=== PATIENT | female | born 1960 | race Caucasian/White ===

== ENCOUNTER → 2023-04-14 | Outpatient (CLI) | payer BC ==
--- NOTE | 2023-04-16 08:20 | MM ---
Reason for Exam: Screening (asymptomatic). Last mammogram was performed 5 year(s) and 11 month(s) ago. Patient History: Menarche at age 15. First Full-Term at age 25. Postmenopausal. Hormonal Contraceptives for 3 years, 8 months. Risk Values: Mónica 5 year model risk: 1.3%. NCI Lifetime model risk: 6.4%. Prior Study Comparison: 06/22/2014 Bilateral Screening Mammogram, [facility]. 07/01/2014 Left Diagnostic Mammogram, [facility]. 09/06/2015 Bilateral Diagnostic Mammogram, [facility]. Tissue Density: There are scattered fibroglandular densities. Findings: Analyzed By CAD. There is no suspicious group of microcalcifications or new suspicious mass. Overall Assessment: Negative, BI-RAD 1 Management: Screening Mammogram of both breasts in [address] [facility] will attempt to contact patient to return for supplemental views and ultrasound if indicated. Patient should continue monthly self-breast exams. A clinical breast exam by your physician is recommended on an annual basis. This exam should not preclude additional follow-up of suspicious palpable abnormalities. Note on Mónica scores and lifetime risk: 1. A Mónica score greater than 3% is considered moderate risk. If this is the case, consider specialist referral to assess eligibility for a risk reducing agent. 2. If overall lifetime risk for the development of breast cancer is 20% or higher, the patient may qualify for future screening with alternating mammogram and breast MRI. Electronically signed and approved by: Edu Arevalo DO
== END | disposition home or self-care (01) ==
LOC: RADMAMWWP 11:40
PROVIDERS: ATTEND Internal Medicine
DX: Z12.31 Encounter for screening mammogram for malignant neoplasm of breast (principal); Z78.0 Asymptomatic menopausal state
CPT/HCPCS: 77063; 77067

== ENCOUNTER → 2024-03-01 | Outpatient (CLI) | payer BC ==
--- NOTE | 2024-03-01 08:41 | US ---
EXAMINATION TYPE: US gallbladder DATE OF EXAM: 03/01/2024 COMPARISON: NONE CLINICAL INDICATION: Female, 64 years old with history of R10.13 EPIGASTRIC PAIN; epigastric pain TECHNIQUE: Multiple sonographic images of the right upper quadrant are obtained. FINDINGS: EXAM MEASUREMENTS: Liver Length: 13.2 cm Gallbladder Wall: 0.2 cm CBD: 0.3 cm Right Kidney: 9.7x4.2x4.9 cm REINSURANCE ANALYST NOTES: Pancreas: Tail obscured by overlying bowel gas Liver: increased echogenicity and attenuation , no mass is dilated ducts or cystic structures. Gallbladder: wnl Evidence for sonographic Ramirez's sign: No CBD: wnl Right Kidney: mid pole cystic area 1.6x1.6x1.6cm exam limited by bowel and body habitus IMPRESSION: 1. No evidence for acute process. 2. Hepatic steatosis. 3. Right simple appearing renal cysts.
== END | disposition home or self-care (01) ==
LOC: RADUSWWP 06:58
PROVIDERS: ATTEND Internal Medicine
DX: K76.0 Fatty (change of) liver, not elsewhere classified (principal); N28.1 Cyst of kidney, acquired; R10.13 Epigastric pain
CPT/HCPCS: 76705

== ENCOUNTER → 2024-03-04 | Outpatient (CLI) | payer BC ==
--- NOTE | 2024-03-04 10:04 | NM ---
EXAMINATION TYPE: NM hepatobiliary w EF DATE OF EXAM: 03/04/2024 9:22 AM COMPARISON: 03/01/2024. CLINICAL INDICATION:Female, 64 years old with history of R10.13 EPIGASTRIC PAIN; TECHNIQUE: The patient was given 5.2 mCi of Technetium 99m-Mebrofenin as a radiotracer and multiple scintigraphic images were obtained of the abdomen. Gallbladder function was also assessed after the administration of ensure drink and additional scinti graphic images were obtained of the abdomen. A region of interest was drawn over the gallbladder and a timing activity curve was generated. The gallbladder ejection fraction was calculated. FINDINGS: Normal uptake of radiotracer was identified within the liver with excretion into the hepatic and comm on biliary ducts within 6 minutes. There was normal progressive washout of the liver over the course of the study. Radiotracer uptake within the gallbladder at 6 minutes as well as small bowel activity was identified at 20 minutes. Maximum calculated gallbladder ejection fraction is: 74% at 30 minutes (Normal gallbladder ejection fraction is > 35%) IMPRESSION: 1. Normal hepatobiliary scan. 2. Normal ejection fraction.
== END | disposition home or self-care (01) ==
LOC: RADNMMAIN 06:40
PROVIDERS: ATTEND Internal Medicine
DX: R10.13 Epigastric pain (principal)
CPT/HCPCS: 78226; A9537